=== PATIENT | female | born 1970 | race Caucasian/White ===

== ENCOUNTER 2017-10-07 18:08 | Emergency (ER) | payer BC ==
[2017-10-07 18:20] VITALS: RESP 18
[2017-10-07] MEDS ORDERED: SODIUM CHLORIDE 0.9% 1,000 ML IV STA (18:26)
--- NOTE | 2017-10-07 18:45 | ED ---
Abdominal Pain HPI - General Chief Complaint: Abdominal Pain Stated Complaint: abd pain Time Seen by Provider: 10/07/17 18:21 Source: patient Mode of arrival: ambulatory Limitations: no limitations - History of Present Illness Initial Comments: 46-year-old female patient presents to emergency department today for evaluation of upper abdominal pain. Patient states that she has had 3 similar episodes of this pain since Friday. Patient states that his of severe cramping type pain all across her upper abdomen. States it usually lasts approximately 2 -3 hours however today it started around 3:30 and hasn't stopped. She also reports new onset low back pain today. Patient states she becomes nauseated when the pain comes on but denies any vomiting. Denies any constipation or diarrhea. Denies any fevers or chills. Patient denies any history of similar symptoms before Friday. Patient does not notice any correlation between her meals and onset of the pain. Patient states that the middle of August she did travel to [place]. She denies any sick contacts. Patient has had hysterectomy but no other abdominal surgeries. Patient denies any recent rash, shortness breath, chest pain, numbness, tingling, dizziness, weakness, hematuria, dysuria , urinary urgency, urinary frequency, headache, visual changes, or any other complaints. - Related Data Home Medications Medication Instructions Recorded Confirmed No Known Home Medications [No 10/07/17 10/07/17 Known Home Medications] Allergies Allergy/AdvReac Type Severity Reaction Status Date / Time No Known Allergies Allergy Verified 10/07/17 18:27 Review of Systems ROS Statement: Those systems with pertinent positive or pertinent negative responses have been documented in the HPI. ROS Other: All systems not noted in ROS Statement are negative. Past Medical History Past Medical History: No Reported History History of Any Multi-Drug Resistant Organisms: None Reported Past Surgical History: Hysterectomy Past Psychological History: No Psychological Hx Reported Smoking Status: Never smoker Past Alcohol Use History: Occasional Past Drug Use History: None Reported General Exam Limitations: no limitations General appearance: alert, in no apparent distress, other (This is a well- developed, well-nourished adult female patient in no acute distress. Vital signs upon presentation are temperature 98.3F) Eye exam: Present: normal appearance, PERRL, EOMI. Absent: scleral icterus, conjunctival injection, periorbital swelling ENT exam: Present: normal exam, normal oropharynx, mucous membranes moist Respiratory exam: Present: normal lung sounds bilaterally. Absent: respiratory distress, wheezes, rales, rhonchi, stridor Cardiovascular Exam: Present: regular rate, normal rhythm, normal heart sounds. Absent: systolic murmur, diastolic murmur, rubs, gallop, clicks GI/Abdominal exam: Present: soft, normal bowel sounds. Absent: distended, tenderness, guarding, rebound, rigid Back exam: Present: normal inspection. Absent: vertebral tenderness Neurological exam: Present: alert, oriented X3, CN II-XII intact Psychiatric exam: Present: normal affect, normal mood Skin exam: Present: warm, dry, intact, normal color. Absent: rash Course Vital Signs 10/07/17 18:18 Temperature 98.3 F Pulse Rate 92 Respiratory 18 Rate Blood Pressure 190/94 O2 Sat by Pulse 98 Oximetry Medical Decision Making - Medical Decision Making 46-year-old female patient presented to the emergency department today for evaluation of upper abdominal pain. Physical examination is unremarkable, there is no abdominal tenderness. Labs reviewed and did show an elevated white blood cell count of 14 however all other labs were within normal range. Urinalysis was negative. KUB x-ray of the abdomen showed overall nonobstructive bowel gas pattern. Upon reevaluation patient is feeling better, states the pain is gone. She is instructed to follow-up with her primary care physician for further evaluation. Return parameters were discussed in detail. She verbalizes understanding and agrees with this plan. - Lab Data Result diagrams: 10/07/17 19:00 10/07/17 19:00 Lab Results 10/07/17 10/07/17 10/07/17 Range/Units 19:00 19:00 19:00 WBC 14.0 H (3.8-10.6) k/uL RBC 4.95 (3.80-5.40) m/uL Hgb 14.0 (11.4-16.0) gm/dL Hct 42.7 (34.0-46.0) % MCV 86.2 (80.0-100.0) fL MCH 28.3 (25.0-35.0) pg MCHC 32.8 (31.0-37.0) g/dL RDW 13.3 (11.5-15.5) % Plt Count 369 (150-450) k/uL Neutrophils % 81 % Lymphocytes % 13 % Monocytes % 4 % Eosinophils % 1 % Basophils % 0 % Neutrophils # 11.4 H (1.3-7.7) k/uL Lymphocytes # 1.8 (1.0-4.8) k/uL Monocytes # 0.6 (0-1.0) k/uL Eosinophils # 0.1 (0-0.7) k/uL Basophils # 0.0 (0-0.2) k/uL Sodium 140 (137-145) mmol/L Potassium 4.3 (3.5-5.1) mmol/L Chloride 105 (98-107) mmol/L Carbon Dioxide 22 (22-30) mmol/L Anion Gap 13 mmol/L BUN 14 (7-17) mg/dL Creatinine 0.62 (0.52-1.04) mg/dL Est GFR (CKD-EPI)AfAm >90 (>60 ml/min/1.73 sqM) Est GFR (CKD-EPI)NonAf >90 (>60 ml/min/1.73 sqM) Glucose 100 H (74-99) mg/dL Calcium 8.9 (8.4-10.2) mg/dL Total Bilirubin 0.4 (0.2-1.3) mg/dL AST 40 H (14-36) U/L ALT 49 (9-52) U/L Alkaline Phosphatase 67 (38-126) U/L Total Creatine Kinase 43 (30-135) U/L CK-MB (CK-2) <0.2 (0.0-2.4) ng/mL CK-MB (CK-2) Rel Index Troponin I <0.012 (0.000-0.034) ng/mL Total Protein 7.1 (6.3-8.2) g/dL Albumin 4.0 (3.5-5.0) g/dL Amylase 51 (30-110) U/L Lipase 137 (23-300) U/L Urine Color Urine Appearance (Clear) Urine pH (5.0-8.0) Ur Specific Wilmer (1.001-1.035) Urine Protein (Negative) Urine Glucose (UA) (Negative) Urine Ketones (Negative) Urine Blood (Negative) Urine Nitrite (Negative) Urine Bilirubin (Negative) Urine Urobilinogen (<2.0) mg/dL Ur Leukocyte Esterase (Negative) Urine RBC (0-5) /hpf Urine WBC (0-5) /hpf Ur Squamous Epith Cells (0-4) /hpf Urine Bacteria (None) /hpf 10/07/17 Range/Units 19:58 WBC (3.8-10.6) k/uL RBC (3.80-5.40) m/uL Hgb (11.4-16.0) gm/dL Hct (34.0-46.0) % MCV (80.0-100.0) fL MCH (25.0-35.0) pg MCHC (31.0-37.0) g/dL RDW (11.5-15.5) % Plt Count (150-450) k/uL Neutrophils % % Lymphocytes % % Monocytes % % Eosinophils % % Basophils % % Neutrophils # (1.3-7.7) k/uL Lymphocytes # (1.0-4.8) k/uL Monocytes # (0-1.0) k/uL Eosinophils # (0-0.7) k/uL Basophils # (0-0.2) k/uL Sodium (137-145) mmol/L Potassium (3.5-5.1) mmol/L Chloride (98-107) mmol/L Carbon Dioxide (22-30) mmol/L Anion Gap mmol/L BUN (7-17) mg/dL Creatinine (0.52-1.04) mg/dL Est GFR (CKD-EPI)AfAm (>60 ml/min/1.73 sqM) Est GFR (CKD-EPI)NonAf (>60 ml/min/1.73 sqM) Glucose (74-99) mg/dL Calcium (8.4-10.2) mg/dL Total Bilirubin (0.2-1.3) mg/dL AST (14-36) U/L ALT (9-52) U/L Alkaline Phosphatase (38-126) U/L Total Creatine Kinase (30-135) U/L CK-MB (CK-2) (0.0-2.4) ng/mL CK-MB (CK-2) Rel Index Troponin I (0.000-0.034) ng/mL Total Protein (6.3-8.2) g/dL Albumin (3.5-5.0) g/dL Amylase (30-110) U/L Lipase (23-300) U/L Urine Color Colorless Urine Appearance Clear (Clear) Urine pH 6.5 (5.0-8.0) Ur Specific Wilmer 1.004 (1.001-1.035) Urine Protein Negative (Negative) Urine Glucose (UA) Negative (Negative) Urine Ketones Trace H (Negative) Urine Blood Trace H (Negative) Urine Nitrite Negative (Negative) Urine Bilirubin Negative (Negative) Urine Urobilinogen <2.0 (<2.0) mg/dL Ur Leukocyte Esterase Negative (Negative) Urine RBC 1 (0-5) /hpf Urine WBC <1 (0-5) /hpf Ur Squamous Epith Cells 1 (0-4) /hpf Urine Bacteria Rare H (None) /hpf - EKG Data -: EKG Interpreted by Me EKG Comments: EKG obtained by [id number] shows normal sinus rhythm. Ventricular rate is 79, ME interval 158, QR pentecostal 78, QT 384, QTC 440. No evidence of ST elevation or depression. - Radiology Data Radiology results: report reviewed, image reviewed Two-view x-ray of the abdomen shows no sign of intestinal obstruction or pneumoperitoneum. There is mild levoscoliosis. There are no pathologic calcifications over the kidneys. There is slight blunting of the left costophrenic angle. Fecal pattern is normal. Impression by Dr. Lopez shows mild pleural reaction at the lateral left lung bases is new compared to old exam. Nonacute abdomen. Disposition Clinical Impression: Abdominal pain Disposition: HOME SELF-CARE Condition: Good Instructions: Abdominal Pain (ED) Additional Instructions: Follow-up with the primary care physician for recheck as soon as possible. Return here immediately for any new, worsening, or concerning symptoms. Is patient prescribed a controlled substance at d/c from ED?: No Referrals: Jack Shen MD [Primary Care Provider] - 1-2 days Time of Disposition: 20:29
[2017-10-07 19:14] LABS: Basophils % (A) 0 %; Eosinophils # (A) 0.1 k/uL (0-0.7); Eosinophils % (A) 1 %; HCT 42.7 % (34.0-46.0); Lymphocytes # (A) 1.8 k/uL (1.0-4.8); Lymphocytes % (A) 13 %; MCH 28.3 pg (25.0-35.0); MCHC 32.8 g/dL (31.0-37.0); MCV 86.2 fL (80.0-100.0); Mean Platelet Volume 7.2; Monocytes # (A) 0.6 k/uL (0-1.0); Monocytes % (A) 4 %; Neutrophils # (A) 11.4 k/uL (1.3-7.7); Neutrophils % (A) 81 %; Platelet Count 369 k/uL (150-450); RBC 4.95 m/uL (3.80-5.40); RDW 13.3 % (11.5-15.5)
[2017-10-07 19:29] LABS: ALT 49 U/L (9-52); AST 40 U/L (14-36); Alkaline Phosphatase 67 U/L (38-126); Amylase 51 U/L (30-110); Anion Gap 13 mmol/L; Blood Urea Nitrogen 14 mg/dL (7-17); Calcium 8.9 mg/dL (8.4-10.2); Carbon Dioxide 22 mmol/L (22-30); Chloride 105 mmol/L (98-107); Glucose 100 mg/dL (74-99); Lipase 137 U/L (23-300); Potassium 4.3 mmol/L (3.5-5.1); Sodium 140 mmol/L (137-145); Total Bilirubin 0.4 mg/dL (0.2-1.3); Total Protein 7.1 g/dL (6.3-8.2)
--- NOTE | 2017-10-07 19:29 | XR ---
EXAMINATION TYPE: XR KUB DATE OF EXAM: 10/07/2017 COMPARISON: 03/13/2012 HISTORY: Abdominal pain TECHNIQUE: 2 views FINDINGS: There is no sign of intestinal obstruction or pneumoperitoneum. There is mild levoscoliosis . There are no pathologic calcifications over the kidneys. There is slight blunting of left costophre mary angle. Fecal pattern is normal. IMPRESSION: There is some mild pleural reaction at the lateral left lung base that is new compared to old exam. Nonacute abdomen.
[2017-10-07 19:39] LABS: Creatine Kinase 43 U/L (30-135)
[2017-10-07 19:51] LABS: Creatine Kinase MB <0.2 ng/mL (0.0-2.4); Troponin I <0.012 ng/mL (0.000-0.034)
[2017-10-07 20:07] LABS: Appearance,Urine Clear (Clear); Bacteria,Urine Rare /hpf; Bilirubin,Urine Negative (Negative); Blood,Urine Trace (Negative); Color,Urine Colorless; Glucose,Urine (UA) Negative (Negative); Ketones,Urine Trace (Negative); Leukocyte Esterase,Urine Negative (Negative); Nitrite,Urine Negative (Negative); PH, Urine 6.5 (5.0-8.0); Protein,Urine Negative (Negative); RBC,Urine 1 /hpf (0-5); Specific Gravity,Urine 1.004 (1.001-1.035); Squamous Epithelial Cell,Urine 1 /hpf (0-4); Urobilinogen,Urine <2.0 mg/dL (<2.0); WBC,Urine <1 /hpf (0-5)
[2017-10-07 20:47] VITALS: BP 147/85; PULSE 90; TEMP 97.8
== END 2017-10-07 20:47 | disposition home or self-care (01) ==
LOC: EC 18:08
DX: R10.10 Upper abdominal pain, unspecified (principal); M54.5 Low back pain; R11.0 Nausea
CPT/HCPCS: 36415; 74018; 80053; 81001; 82150; 82550; 82553; 83690; 84484; 85025; 93005; 96360; 99284

== ENCOUNTER 2018-01-02 19:51 | Emergency (ER) | payer BC ==
[2018-01-02] MEDS ORDERED: METOCLOPRAMIDE 5 MG/ML 2 ML VIAL IVP STA (20:39)
[2018-01-02] MEDS ORDERED: FAMOTIDINE 20 MG/2 ML VIAL IV STA (20:40)
[2018-01-02] MEDS ORDERED: KETOROLAC 30 MG/ML 1 ML VIAL IVP STA (20:40)
--- NOTE | 2018-01-02 20:43 | ED ---
General Adult HPI - General Source: patient, RN notes reviewed Mode of arrival: ambulatory Limitations: no limitations <Livan Cosby - Last Filed: 01/02/18 20:40> <Bernardo Saucedo - Last Filed: 01/02/18 22:09> - General Chief complaint: Abdominal Pain Stated complaint: abdominal pain Time Seen by Provider: 01/02/18 20:33 - History of Present Illness Initial comments: Patient is a pleasant 47-year-old female presenting to the emergency department with epigastric pain. Onset of symptoms was around 7:00 after eating a Ej from a restaurant. Patient had mild symptoms after eating pancakes for lunch earlier in the day. Patient did have similar symptoms back in September however does not normally have chronic abdominal problems. Discomfort has been waxing and waning and is mild at this time. No chest pain. No vomiting. No constipation or diarrhea. Patient has had some nausea. (Livan Cosby) - Related Data Home Medications Medication Instructions Recorded Confirmed [id number] 2 each PO Q4HR PRN 01/02/18 01/02/18 [Excedrin] Ibuprofen [Motrin Ib] 400 mg PO Q8H PRN 01/02/18 01/02/18 diphenhydrAMINE [Benadryl] 25 mg PO HS PRN 01/02/18 01/02/18 Allergies Allergy/AdvReac Type Severity Reaction Status Date / Time No Known Allergies Allergy Verified 01/02/18 20:58 Review of Systems ROS Other: All systems not noted in ROS Statement are negative. Constitutional: Reports: fever Eyes: Denies: eye pain ENT: Denies: ear pain Respiratory: Denies: cough Cardiovascular: Denies: chest pain Endocrine: Denies: fatigue Gastrointestinal: Reports: abdominal pain, nausea. Denies: vomiting Genitourinary: Denies: dysuria Musculoskeletal: Denies: back pain Skin: Denies: rash Neurological: Denies: weakness <Livan Cosby - Last Filed: 01/02/18 20:40> ROS Other: All systems not noted in ROS Statement are negative. <Bernardo Saucedo - Last Filed: 01/02/18 22:09> ROS Statement: Those systems with pertinent positive or pertinent negative responses have been documented in the HPI. Past Medical History Past Medical History: No Reported History History of Any Multi-Drug Resistant Organisms: None Reported Past Surgical History: Hysterectomy Past Psychological History: No Psychological Hx Reported Smoking Status: Never smoker Past Alcohol Use History: Occasional Past Drug Use History: None Reported <Livan Cosby - Last Filed: 01/02/18 20:40> General Exam Limitations: no limitations General appearance: alert, in no apparent distress Head exam: Present: atraumatic Eye exam: Present: normal appearance Neck exam: Present: normal inspection Respiratory exam: Present: normal lung sounds bilaterally Cardiovascular Exam: Present: regular rate, normal rhythm Expanded Peripheral pulses: 2+: Dorsalis Pedis (R), Dorsalis Pedis (L) GI/Abdominal exam: Present: soft, tenderness (Mild epigastric tenderness to palpation), normal bowel sounds. Absent: distended, guarding, rebound, rigid, pulsatile mass Extremities exam: Present: normal inspection. Absent: pedal edema, calf tenderness Neurological exam: Present: alert Psychiatric exam: Present: normal affect, normal mood Skin exam: Present: normal color <Livan Cosby - Last Filed: 01/02/18 20:40> Vital Signs 01/02/18 20:01 Temperature 98.4 F Pulse Rate 72 Respiratory 16 Rate Blood Pressure 160/92 O2 Sat by Pulse 100 Oximetry EKG Findings - EKG Results: EKG: interpreted by ERMD, sinus rhythm (Rate 85 bpm), normal axis, normal QRS, normal ST/T, no acute changes <Bernardo Saucedo - Last Filed: 01/02/18 22:09> Medical Decision Making - Lab Data Result diagrams: 01/02/18 20:46 01/02/18 20:46 <Bernardo Saucedo - Last Filed: 01/02/18 22:09> - Lab Data Lab Results 01/02/18 01/02/18 01/02/18 Range/Units 20:46 20:46 20:46 WBC 13.7 H (3.8-10.6) k/uL RBC 4.95 (3.80-5.40) m/uL Hgb 14.3 (11.4-16.0) gm/dL Hct 44.8 (34.0-46.0) % MCV 90.6 (80.0-100.0) fL MCH 28.9 (25.0-35.0) pg MCHC 31.9 (31.0-37.0) g/dL RDW 13.2 (11.5-15.5) % Plt Count 353 (150-450) k/uL Neutrophils % 84 % Lymphocytes % 10 % Monocytes % 4 % Eosinophils % 1 % Basophils % 0 % Neutrophils # 11.5 H (1.3-7.7) k/uL Lymphocytes # 1.4 (1.0-4.8) k/uL Monocytes # 0.6 (0-1.0) k/uL Eosinophils # 0.2 (0-0.7) k/uL Basophils # 0.0 (0-0.2) k/uL PT (9.0-12.0) sec INR (<1.2) APTT (22.0-30.0) sec Sodium 139 (137-145) mmol/L Potassium 4.3 (3.5-5.1) mmol/L Chloride 104 (98-107) mmol/L Carbon Dioxide 25 (22-30) mmol/L Anion Gap 10 mmol/L BUN 12 (7-17) mg/dL Creatinine 0.63 (0.52-1.04) mg/dL Est GFR (CKD-EPI)AfAm >90 (>60 ml/min/1.73 sqM) Est GFR (CKD-EPI)NonAf >90 (>60 ml/min/1.73 sqM) Glucose 125 H (74-99) mg/dL Calcium 9.4 (8.4-10.2) mg/dL Total Bilirubin 0.4 (0.2-1.3) mg/dL AST 21 (14-36) U/L ALT 22 (9-52) U/L Alkaline Phosphatase 57 (38-126) U/L Total Creatine Kinase 51 (30-135) U/L CK-MB (CK-2) 0.3 (0.0-2.4) ng/mL CK-MB (CK-2) Rel Index 0.6 Troponin I <0.012 (0.000-0.034) ng/mL Total Protein 7.4 (6.3-8.2) g/dL Albumin 3.9 (3.5-5.0) g/dL Amylase 40 (30-110) U/L Lipase 99 (23-300) U/L 01/02/18 Range/Units 20:46 WBC (3.8-10.6) k/uL RBC (3.80-5.40) m/uL Hgb (11.4-16.0) gm/dL Hct (34.0-46.0) % MCV (80.0-100.0) fL MCH (25.0-35.0) pg MCHC (31.0-37.0) g/dL RDW (11.5-15.5) % Plt Count (150-450) k/uL Neutrophils % % Lymphocytes % % Monocytes % % Eosinophils % % Basophils % % Neutrophils # (1.3-7.7) k/uL Lymphocytes # (1.0-4.8) k/uL Monocytes # (0-1.0) k/uL Eosinophils # (0-0.7) k/uL Basophils # (0-0.2) k/uL PT 10.2 (9.0-12.0) sec INR 1.0 (<1.2) APTT 25.1 (22.0-30.0) sec Sodium (137-145) mmol/L Potassium (3.5-5.1) mmol/L Chloride (98-107) mmol/L Carbon Dioxide (22-30) mmol/L Anion Gap mmol/L BUN (7-17) mg/dL Creatinine (0.52-1.04) mg/dL Est GFR (CKD-EPI)AfAm (>60 ml/min/1.73 sqM) Est GFR (CKD-EPI)NonAf (>60 ml/min/1.73 sqM) Glucose (74-99) mg/dL Calcium (8.4-10.2) mg/dL Total Bilirubin (0.2-1.3) mg/dL AST (14-36) U/L ALT (9-52) U/L Alkaline Phosphatase (38-126) U/L Total Creatine Kinase (30-135) U/L CK-MB (CK-2) (0.0-2.4) ng/mL CK-MB (CK-2) Rel Index Troponin I (0.000-0.034) ng/mL Total Protein (6.3-8.2) g/dL Albumin (3.5-5.0) g/dL Amylase (30-110) U/L Lipase (23-300) U/L Disposition <Livan Cosby - Last Filed: 01/02/18 20:40> Is patient prescribed a controlled substance at d/c from ED?: No <Bernardo Saucedo - Last Filed: 01/02/18 22:09> Clinical Impression: Biliary colic Disposition: HOME SELF-CARE Condition: Good Instructions: Gallstones (ED), Abdominal Pain (ED) Referrals: Jack Shen MD [Primary Care Provider] - 1-2 days Carlos Longoria MD [STAFF PHYSICIAN] - 1-2 days
[2018-01-02 20:51] LABS: Basophils % (A) 0 %; Eosinophils # (A) 0.2 k/uL (0-0.7); Eosinophils % (A) 1 %; HCT 44.8 % (34.0-46.0); HGB 14.3 gm/dL (11.4-16.0); Lymphocytes # (A) 1.4 k/uL (1.0-4.8); Lymphocytes % (A) 10 %; MCH 28.9 pg (25.0-35.0); MCHC 31.9 g/dL (31.0-37.0); MCV 90.6 fL (80.0-100.0); Mean Platelet Volume 6.8; Monocytes # (A) 0.6 k/uL (0-1.0); Monocytes % (A) 4 %; Neutrophils # (A) 11.5 k/uL (1.3-7.7); Neutrophils % (A) 84 %; Platelet Count 353 k/uL (150-450); RBC 4.95 m/uL (3.80-5.40); RDW 13.2 % (11.5-15.5); WBC 13.7 k/uL (3.8-10.6)
[2018-01-02 21:05] LABS: Partial Thromboplastin Time 25.1 sec (22.0-30.0); Prothrombin Time 10.2 sec (9.0-12.0)
[2018-01-02 21:11] LABS: Creatine Kinase 51 U/L (30-135)
[2018-01-02 21:12] LABS: ALT 22 U/L (9-52); AST 21 U/L (14-36); Albumin 3.9 g/dL (3.5-5.0); Alkaline Phosphatase 57 U/L (38-126); Amylase 40 U/L (30-110); Anion Gap 10 mmol/L; Blood Urea Nitrogen 12 mg/dL (7-17); Calcium 9.4 mg/dL (8.4-10.2); Carbon Dioxide 25 mmol/L (22-30); Chloride 104 mmol/L (98-107); Glucose 125 mg/dL (74-99); Lipase 99 U/L (23-300); Potassium 4.3 mmol/L (3.5-5.1); Sodium 139 mmol/L (137-145); Total Bilirubin 0.4 mg/dL (0.2-1.3); Total Protein 7.4 g/dL (6.3-8.2)
--- NOTE | 2018-01-02 21:16 | XR ---
EXAMINATION TYPE: XR KUB DATE OF EXAM: 01/02/2018 COMPARISON: 10/07/2017 HISTORY: Abdominal pain TECHNIQUE: 2 views upright FINDINGS: There is no sign of intestinal obstruction or pneumoperitoneum. There is mild levoscoliosis . There are no pathologic calcifications over the kidneys. There is elevated left diaphragm. IMPRESSION: Mild chronic elevated left diaphragm. Nonacute abdomen. No change.
[2018-01-02 21:24] LABS: Creatine Kinase MB 0.3 ng/mL (0.0-2.4); Troponin I <0.012 ng/mL (0.000-0.034)
--- NOTE | 2018-01-02 21:48 | US ---
EXAMINATION TYPE: US gallbladder DATE OF EXAM: 01/02/2018 COMPARISON: CT 2012 CLINICAL HISTORY: Pain. Upper abdomen pain and nausea x 1 day, not NPO, ate 4 hours ago EXAM MEASUREMENTS: Liver Length: 14.4 cm Gallbladder Wall: 0.2 cm CBD: 0.3 cm Right Kidney: 10.5 x 6.3 x 6.2 cm Difficult and limited study due to patient body habitus and patient not NPO Pancreas: obscured by overlying midline bowel gas Liver: visualized portions wnl, scanned intercostally, limited by rib shadowing Gallbladder: cholelithiasis, wall measures wnl, visualization limited by rib shadowing and overlying bowel gas Evidence for sonographic Haney's sign: yes CBD: visualized portions wnl, limited by overlying bowel gas Right Kidney: 0.5cm echogenic focus inferior pole, visualization limited by rib shadowing and overly ing bowel gas IMPRESSION: Multiple gallstones. Echogenic bile. Small calculus in the lower pole right kidney. No di lated ducts.
[2018-01-02 22:15] LABS: Appearance,Urine Clear (Clear); Bacteria,Urine Rare /hpf; Bilirubin,Urine Negative (Negative); Blood,Urine Moderate (Negative); Color,Urine Yellow; Glucose,Urine (UA) Negative (Negative); Ketones,Urine Negative (Negative); Leukocyte Esterase,Urine Negative (Negative); Mucus,Urine Occasional /hpf; Nitrite,Urine Negative (Negative); Protein,Urine Negative (Negative); RBC,Urine 28 /hpf (0-5); Specific Gravity,Urine 1.018 (1.001-1.035); Squamous Epithelial Cell,Urine 2 /hpf (0-4); Urobilinogen,Urine <2.0 mg/dL (<2.0); WBC,Urine <1 /hpf (0-5)
[2018-01-02 23:23] VITALS: RESP 18
[2018-01-02 23:24] VITALS: BP 155/84; PULSE 96; TEMP 97.7
== END 2018-01-02 23:23 | disposition home or self-care (01) ==
LOC: EC 19:51
DX: K80.50 Calculus of bile duct without cholangitis or cholecystitis without obstruction (principal)
CPT/HCPCS: 36415; 93005; 80053; 82150; 82550; 82553; 83690; 84484; 85025; 85610; 85730; 81001; 74018; 76705; 99284; 96374; 96375 ×2; J2765; J1885

== ENCOUNTER 2018-01-12 06:35 | Day surgery (SDC) | payer BC ==
[2018-01-07 11:33] VITALS: BMI 35.5
[~2018-01-12 06:35] MED LIST: DEXAMETHASONE SOD PHOSPHATE 10 MG/ML 1 ML VIAL IV ONE; HEPARIN SODIUM,PORCINE 5,000 UNIT/ML 1 ML VIAL SQ ONE; LACTATED RINGERS 1,000 ML IV SCH; ceFAZolin IN SWFI 2 GM/20 ML SYRINGE IVP ONE
[2018-01-12] MEDS: ONDANSETRON 4 MG/2 ML VIAL IVP ONE ×2 (06:59→09:05)
[2018-01-12] MEDS ORDERED: LIDOCAINE 1% 20 ML VIAL (10MG/ML) FOR IV START INTRADERMA ONE (06:59)
--- NOTE | 2018-01-12 07:55 | P.GSHP ---
History of Present Illness H&P Date: 01/12/18 Chief Complaint: Right upper quadrant pain Soft 39-year-old female for from Dr. Pauline Nieves. Patient presents today for laparoscopic ostectomy. She's had complaints of right upper quadrant pain. She is found have cholelithiasis. Past Medical History Past Medical History: No Reported History Additional Past Medical History / Comment(s): STATES GALLSTONES, HX OF HEADACHES History of Any Multi-Drug Resistant Organisms: None Reported Past Surgical History: Hysterectomy Additional Past Surgical History / Comment(s): D&C Past Anesthesia/Blood Transfusion Reactions: Postoperative Nausea & Vomiting ( PONV) Smoking Status: Never smoker - Past Family History Mother Family Medical History: No Reported History Medications and Allergies Home Medications Medication Instructions Recorded Confirmed Type Obwgyco-Lewl-Fovf [id number] 2 each PO Q4HR PRN 01/02/18 01/12/18 History [Excedrin] Ibuprofen [Motrin Ib] 400 mg PO Q8H PRN 01/02/18 01/12/18 History diphenhydrAMINE [Benadryl] 25 mg PO HS PRN 01/02/18 01/12/18 History Allergies Allergy/AdvReac Type Severity Reaction Status Date / Time No Known Allergies Allergy Verified 01/12/18 06:53 Surgical - Exam Vital Signs Temp Pulse Resp BP Pulse Ox 98 F 93 16 138/89 99 01/12/18 06:58 01/12/18 06:58 01/12/18 06:58 01/12/18 06:58 01/12/18 06:58 - General well developed, no distress - Eyes PERRL - ENT normal pinna - Neck no masses - Respiratory normal expansion - Cardiovascular Rhythm: regular - Abdomen Abdomen: soft, non tender Assessment and Plan Assessment: Right upper quadrant pain Cholelithiasis We'll perform laparoscopic cholecystectomy.
[2018-01-12] MEDS ORDERED: LIDOCAINE 1% INJ 10MG/ML (20 ML MDV) ONE (07:58)
[2018-01-12] MEDS ORDERED: ROCURONIUM BROMIDE 10 MG/ML 10 ML VIAL IV ONE (07:58)
[2018-01-12] MEDS ORDERED: fentaNYL (PF) 50 MCG/ML 2 ML AMP ONE (07:58)
[2018-01-12] MEDS ORDERED: PROPOFOL 10 MG/ML 20 ML VIAL IV ONE (07:58)
[2018-01-12] MEDS ORDERED: MIDAZOLAM 2 MG/2 ML VIAL ONE (07:58)
[2018-01-12] MEDS ORDERED: GLYCOPYRROLATE 0.2 MG/ML 2 ML VIAL ONE (07:58)
[2018-01-12] MEDS ORDERED: SUCCINYLCHOLINE CHLORIDE 100 MG/5 ML SYR IV ONE (07:58)
[2018-01-12] MEDS ORDERED: NEOSTIGMINE 1 MG/ML 10 ML VIAL ONE (07:58)
[2018-01-12] MEDS ORDERED: BUPIVACAIN-EPI 0.5%-1:200,000 30 ML VIAL SQ ONE ×2 (08:18)
[2018-01-12] MEDS: HYDROmorphone 0.5 MG/0.5 ML SYRINGE IVP PRN ×2 (09:00→09:05)
[2018-01-12 09:02] VITALS: TEMP 97.8
[2018-01-12] MEDS ORDERED: KETOROLAC 30 MG/ML 1 ML VIAL IVP ONE (09:16)
--- NOTE | 2018-01-12 09:18 | P.OP ---
Date of Procedure: 01/12/18 Preoperative Diagnosis: Cholelithiasis Postoperative Diagnosis: Cholelithiasis Procedure(s) Performed: Laparoscopic cholecystectomy Anesthesia: DEIDRE Surgeon: Carlos Longoria Estimated Blood Loss (ml): 5 Pathology: other (Gallbladder) Condition: stable Disposition: PACU Description of Procedure: The patient was placed on the operating table. The patient received a general endotracheal tube anesthesia. The patients abdomen was prepped and draped in the usual sterile fashion. Through an infraumbilical stab incision, the fascia of the anterior abdominal wall was grasped with a pair of Kochers and then the Veress needle was placed in the peritoneal cavity. Position of the Veress needle was confirmed with positive drop test. The abdomen was then insufflated. After adequate insufflation, the 10 mm trocar was placed in the peritoneal cavity. Following this the laparoscope was placed in the peritoneal cavity. The patient was placed in the head-up, right side up position and then a 5 mm trocar was placed in the right lateral and right subcostal position under direct visualization. A 8 mm trocar was placed in the epigastric position. The gallbladder was grasped in the fundus and infundibulum. Traction on the gallbladder was placed in the lateral and the cephalad positions. The triangle of Calot was visualized.. The cystic duct was bluntly dissected until the union of the cystic duct and common bile duct was seen. The cystic duct was then divided and sealed with the Harmonic scissors. A PDS Endoloop was then placed throughout the cystic duct stump. The cystic artery divided and sealed with the Harmonic scissors. The gallbladder was then removed from the liver bed using Harmonic scissors. The gallbladder was then extracted through the epigastric port site. Operative field was checked for any bleeding spots and Harmonic scissors was used to coagulate the liver bed. The abdomen was irrigated. The trocars were removed. The skin was closed using interrupted 3-0 Vicryl suture. Dermabond dressing were applied. The patient tolerated the procedure well.
[2018-01-12] MEDS ORDERED: LACTATED RINGERS 1,000 ML IV ONE ×2 (09:33→11:00)
[2018-01-12 09:53] VITALS: RESP 18
[2018-01-12] MEDS ORDERED: METOCLOPRAMIDE 5 MG/ML 2 ML VIAL IVP ONE (10:17)
[2018-01-12 10:25] VITALS: PULSE 74
[2018-01-12 11:51] VITALS: BP 104/66
== END 2018-01-12 12:25 | disposition home or self-care (01) ==
LOC: OR 06:35
PROVIDERS: ATTEND Surgery
DX: K80.10 Calculus of gallbladder with chronic cholecystitis without obstruction (principal)
CPT/HCPCS: 88304; 47562; J2250; J1644; J1100; J2710; J2765; J2405; J2001; J3010; J1885; J0330; J2704; J1170; J0690

== ENCOUNTER → 2018-07-17 | Outpatient (CLI) | payer BC ==
--- NOTE | 2018-07-20 12:09 | MM ---
Reason for exam: screening (asymptomatic). Last mammogram was performed 5 years and 9 months ago. History: Family history of breast cancer in aunt. Physical Findings: A clinical breast exam by your physician is recommended on an annual basis and results should be correlated with mammographic findings. MG Screening Mammo w CAD Bilateral CC and MLO view(s) were taken. Prior study comparison: October 26, 2012, bilateral digital screening mammo w/CAD. June 06, 2010, [facility] DIGITAL RIGHT MAMMOGRAM w/CAD. The breast tissue is heterogeneously dense. This may lower the sensitivity of mammography. No suspicious abnormality. No significant changes when compared with prior studies. ASSESSMENT: Negative, BI-RAD 1 RECOMMENDATION: Routine screening mammogram of both breasts in 1 year.
== END | disposition home or self-care (01) ==
LOC: RADMAMWWP 16:41
PROVIDERS: ATTEND Internal Medicine
DX: Z12.31 Encounter for screening mammogram for malignant neoplasm of breast (principal)
CPT/HCPCS: 77067

== ENCOUNTER → 2019-10-07 | Outpatient (CLI) | payer BC ==
--- NOTE | 2019-10-12 11:07 | MM ---
Reason for exam: screening (asymptomatic). Last mammogram was performed 1 year and 3 months ago. History: Family history of breast cancer in aunt. Physical Findings: A clinical breast exam by your physician is recommended on an annual basis and results should be correlated with mammographic findings. MG Screening Mammo w CAD Bilateral CC and MLO view(s) were taken. Prior study comparison: July 17, 2018, bilateral MG screening mammo w CAD. The breast tissue is heterogeneously dense. This may lower the sensitivity of mammography. Medial and lateral nodularity right CC view appears new. Small focal asymmetry subareolar left breast is more defined. ASSESSMENT: Incomplete: need additional imaging evaluation, BI-RAD 0 RECOMMENDATION: Special view mammogram of both breasts. (3D) If lesion persists on supplemental views, image directed ultrasound is recommended. [facility] will attempt to contact patient to return for supplemental views and ultrasound if indicated.
== END | disposition home or self-care (01) ==
LOC: RADMAMWWP 15:43
PROVIDERS: ATTEND Family Medicine
DX: Z12.31 Encounter for screening mammogram for malignant neoplasm of breast (principal)
CPT/HCPCS: 77067

== ENCOUNTER → 2020-09-04 | Outpatient (CLI) | payer BC ==
--- NOTE | 2020-09-05 09:31 | MM ---
Reason for exam: additional evaluation requested from prior study. Last mammogram was performed 11 months ago. History: Family history of breast cancer in aunt. Physical Findings: Patient refused breast exam. MG 3D Diag Mammo W/Cad [facility] Bilateral CC and MLO view(s) were taken. Prior study comparison: October 07, 2019, bilateral MG screening mammo w CAD. July 17, 2018, bilateral MG screening mammo w CAD. The breast tissue is heterogeneously dense. This may lower the sensitivity of mammography. Finding: There is a 7 mm equal density (isodense), obscured mass in the outer quadrant of the right breast. These results were verbally communicated with the patient and result sheet given to the patient on 09/04/20. ASSESSMENT: Incomplete: need additional imaging evaluation, BI-RAD 0 RECOMMENDATION: Ultrasound of the right breast.
--- NOTE | 2020-09-05 09:37 | USB ---
Reason for exam: additional evaluation requested from abnormal screening. History: Family history of breast cancer in aunt. US Breast Limited BILAT Right limited breast ultrasound including focal area of concern, retroareolar and axilla demonstrates a 0.5 x 0.6 x 0.5cm cystic lesion at 11 o'clock. Left limited breast ultrasound including focal area of concern, retroareolar and axilla demonstrates no cystic or solid lesion seen. These results were verbally communicated with the patient and result sheet given to the patient on 09/04/20. ASSESSMENT: Probably benign, BI-RAD 3 RECOMMENDATION: Follow-up diagnostic mammogram of both breasts in 6 months.
== END | disposition home or self-care (01) ==
LOC: RADMAMWWP 14:16
PROVIDERS: ATTEND Family Medicine
DX: R92.2 Inconclusive mammogram (principal); N60.01 Solitary cyst of right breast; N63.10 Unspecified lump in the right breast, unspecified quadrant; Z80.3 Family history of malignant neoplasm of breast
CPT/HCPCS: 77062; 77066

== ENCOUNTER → 2022-09-20 | Outpatient (CLI) | payer BC ==
--- NOTE | 2022-09-24 07:26 | MM ---
Reason for Exam: Screening (asymptomatic). Last mammogram was performed 2 year(s) and 0 month(s) ago. Patient History: Menarche at age 11. Hysterectomy at age 41. Maternal aunt had breast cancer. Risk Values: Zuri 5 year model risk: 0.8%. NCI Lifetime model risk: 6.3%. Prior Study Comparison: 07/17/2018 Bilateral Screening Mammogram, [facility]. 10/07/2019 Bilateral Screening Mammogram, [facility]. 09/04/2020 Bilateral Diagnostic Mammogram, [facility]. Tissue Density: There are scattered fibroglandular densities. Findings: Analyzed By CAD. There is no suspicious group of microcalcifications or new suspicious mass in either breast. Overall Assessment: Negative, BI-RAD 1 Management: Screening Mammogram of both breasts in [address] [facility] will attempt to contact patient to return for supplemental views and ultrasound if indicated. Patient should continue monthly self-breast exams. A clinical breast exam by your physician is recommended on an annual basis. This exam should not preclude additional follow-up of suspicious palpable abnormalities. Note on Zuri scores and lifetime risk: 1. A Zrui score greater than 3% is considered moderate risk. If this is the case, consider specialist referral to assess eligibility for a risk reducing agent. 2. If overall lifetime risk for the development of breast cancer is 20% or higher, the patient may qualify for future screening with alternating mammogram and breast MRI. Electronically signed and approved by: Donell Romeo DO
== END | disposition home or self-care (01) ==
LOC: RADMAMWWP 07:20
PROVIDERS: ATTEND Family Medicine
DX: Z12.31 Encounter for screening mammogram for malignant neoplasm of breast (principal); Z80.3 Family history of malignant neoplasm of breast
CPT/HCPCS: 77063; 77067